=== PATIENT | female | born 1950 | race Caucasian/White ===

== ENCOUNTER 2016-10-07 09:38 | Emergency (ER) | payer OTHER, BC ==
[~2016-10-07] VITALS: Ht 152.4 cm; Wt 62.0 kg
[2016-10-07 09:40] VITALS: BP 131/62; PULSE 77; RESP 15; TEMP 98.1; O2SAT 98
[2016-10-07] MEDS ORDERED: SIMV40TA PO (09:54)
[2016-10-07] MEDS ORDERED: LANTINJ SQ (09:54)
[2016-10-07] MEDS ORDERED: METF1000 PO (09:54)
[2016-10-07] MEDS ORDERED: LISI-515 PO (09:54)
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
[2016-10-07] MEDS ORDERED: ROBA750T PO (11:45)
[2016-10-07] MEDS ORDERED: MOBI15TA PO (11:45)
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
== END 2016-10-07 12:01 | disposition home or self-care (01) ==
LOC: PHEFT 09:38
DX: S16.1XXA Strain of muscle, fascia and tendon at neck level, initial encounter (principal); S29.019A Strain of muscle and tendon of unspecified wall of thorax, initial encounter; S39.012A Strain of muscle, fascia and tendon of lower back, initial encounter; I10 Essential (primary) hypertension; E11.9 Type 2 diabetes mellitus without complications; E78.00 Pure hypercholesterolemia, unspecified; Z79.4 Long term (current) use of insulin; Z79.84 Long term (current) use of oral hypoglycemic drugs; V43.62XA Car passenger injured in collision with other type car in traffic accident, initial encounter; Y93.9 Activity, unspecified; Y92.9 Unspecified place or not applicable; Y99.9 Unspecified external cause status
CPT/HCPCS: 72040; 72072; 72100; 99283